=== PATIENT | female | born 1995 | race Caucasian/White ===

== ENCOUNTER 2017-02-22 17:20 | Outpatient (CLI) | payer MEDICAID | END 2017-02-22 17:21 | disposition critical access hospital (66) | LOC: EMS 17:20 | PROVIDERS: ATTEND Surgery | DX: M25.551 Pain in right hip (principal); M25.552 Pain in left hip; M54.5 Low back pain; V43.53XA Car driver injured in collision with pick-up truck in traffic accident, initial encounter; Y92.413 State road as the place of occurrence of the external cause | CPT/HCPCS: A0425; A0427 ==

== ENCOUNTER 2017-02-22 17:54 | Emergency (ER) | payer MEDICAID, OTHER ==
[2017-02-22] MEDS ORDERED: HYDROmorphone 1 MG/ML CARPUJECT IVP STA (19:05)
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
[2017-02-22] MEDS ORDERED: HYDROmorphone 1 MG/ML CARPUJECT ONE (19:16)
--- NOTE | 2017-02-22 20:15 | XRAY Preliminary Report ---
Exam: XR Hips 2V BILAT IMPRESSION: Normal bilateral hip radiography. [facility] SITE ID: [id number]
[2017-02-22] MEDS ORDERED: HYDROcod/ACET 5/325 Prepack 6 PO STA (20:42)
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
[2017-02-22] MEDS ORDERED: HYDROcod/ACET 5/325 Prepack 6 PO ONE (21:01)
[2017-02-22 21:16] VITALS: BP 100/55
== END 2017-02-22 21:16 | disposition home or self-care (01) ==
LOC: EDBD → EDUNIT# → ED 17:54
DX: S76.011A Strain of muscle, fascia and tendon of right hip, initial encounter (principal); S76.012A Strain of muscle, fascia and tendon of left hip, initial encounter; V49.40XA Driver injured in collision with unspecified motor vehicles in traffic accident, initial encounter; Y92.410 Unspecified street and highway as the place of occurrence of the external cause
CPT/HCPCS: 73521; 96374; 99283; 99284; J1170

== ENCOUNTER 2017-12-03 | Emergency (ER) | payer MEDICAID ==
[2017-12-03] MEDS ORDERED: IPRATROPIUM/ALBUTEROL 3 ML NEB INH STA (00:22)
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
--- NOTE | 2017-12-03 01:14 | XRAY Report ---
Procedure Date: 12/03/2017 Accession Number: [id number] / [id number] Procedure: XR - Chest 2 View X-Ray CPT Code: 60922 FULL RESULT: EXAM: CHEST RADIOGRAPHY EXAM DATE: 12/03/2017 01:08 AM. CLINICAL HISTORY: Chest pain. COMPARISON: None. TECHNIQUE: 2 views. FINDINGS: Lungs/Pleura: No alveolar consolidation or pleural effusion seen. No pneumothorax. Mediastinum: Heart and mediastinal contours are unremarkable. Other: None. IMPRESSION: 1. No acute abnormality seen in the chest. [facility]
[2017-12-03 01:48] VITALS: BP 117/75
== END 2017-12-03 01:35 | disposition home or self-care (01) ==
LOC: ED
DX: R07.89 Other chest pain (principal)
CPT/HCPCS: 71046; 94640; 99283

== ENCOUNTER 2020-12-29 08:00 | Outpatient (CLI) | payer MEDICAID, OTHER | END 2020-12-29 23:59 | disposition home or self-care (01) | LOC: LAB.S 08:00 | PROVIDERS: ATTEND Physician Assistant Medical | DX: K12.0 Recurrent oral aphthae (principal) | CPT/HCPCS: 81599; 87255 ==